=== PATIENT | female | born 1980 | race Caucasian/White ===

== ENCOUNTER 2024-05-13 10:56 | Emergency (ER) | payer OTHER ==
[~2024-05-13] VITALS: Ht 160 cm; Wt 63.5 kg
[2024-05-13 11:00] VITALS: BP 111/72; PULSE 92; RESP 18; TEMP 98; O2SAT 99
[2024-05-13 12:54] VITALS: BP 112/70; PULSE 88; RESP 18; O2SAT 99
== END 2024-05-13 12:54 | disposition home or self-care (01) ==
LOC: MED 10:56 → EDBD 10:56 → MED 12:54
DX: S90.32XA Contusion of left foot, initial encounter (principal); R42 Dizziness and giddiness; W19.XXXA Unspecified fall, initial encounter; Y93.89 Activity, other specified; Y92.89 Other specified places as the place of occurrence of the external cause; Y99.8 Other external cause status
CPT/HCPCS: 73610; 73630; 99284; Q0092